=== PATIENT | female | born 1990 | race Caucasian/White ===

== ENCOUNTER 2021-02-28 06:47 | Day surgery (SDC) | payer MEDICAID ==
[2021-02-22 10:50] LABS: CLARITY,URINE CLEAR (Clear); GLUCOSE, URINE NEGATIVE (Neg); KETONES,URINE NEGATIVE (Neg); LEUKOCYTE ESTERASE ,URINE NEGATIVE (Neg); NITRITES, URINE NEGATIVE (Neg); OCCULT BLOOD,URINE TRACE-LYSED (Neg); PH,URINE 7.5 (4.8-8.0); PROTEIN,URINE NEGATIVE (Neg); UROBILINOGEN,URINE 0.2 E.U/dL (0.2-1.0)
[2021-02-22 10:54] LABS: BASOPHILS % (AUTO) 0.6 % (0-1); EOSINOPHILS # (AUTO) 0.1 X10'3 (0-0.9); EOSINOPHILS % (AUTO) 1.5 % (0-6); LYMPHOCYTES % (AUTO) 22.8 % (21-51); MEAN CORPUSCULAR HEMOGLOBIN 30.9 PG (27.0-31.0); MEAN CORPUSCULAR HGB CONC 34.1 g/dL (33.0-36.5); MEAN CORPUSCULAR VOLUME 90.6 FL (78-98); MEAN PLATELET VOLUME 9.6 FL (7.4-10.4); MONOCYTES # (AUTO) 0.3 X10'3 (0-0.9); MONOCYTES % (AUTO) 7.4 % (2-12); NEUTROPHILS # (AUTO) 3.1 X10'3 (1.8-7.7); NEUTROPHILS % (AUTO) 67.7 % (42-75); PRE OP HEMATOCRIT 39.9 % (35.0-45.0); PRE OP HEMOGLOBIN 13.6 g/dL (12.0-16.0); PRE OP PLATELET COUNT 184 X10'3 (140-440); RED CELL DISTRIBUTION WIDTH 14.2 % (11.5-14.5)
[2021-02-22 11:00] LABS: COLOR,URINE STRAW (Yellow); UA COLLECTION TYPE CLN CATCH MIDSTREAM
[2021-02-22 11:05] LABS: SQUAMOUS EPITHELIAL CELL,UR FEW /LPF (FEW)
[2021-02-22 11:09] LABS: RBC,URINE 0-2 /HPF (0-2); WBC,URINE 0-4 /HPF (0-4)
[2021-02-22 11:10] LABS: BACTERIA,URINE 1+ /HPF (Neg)
[2021-02-22 11:13] LABS: ALBUMIN 4.3 G/DL (3.4-5.0); ALBUMIN/GLOBULIN RATIO 1.2 (1.1-1.5); ALKALINE PHOSPHATASE 62 IU/L (46-116); BLOOD UREA NITROGEN 12 MG/DL (7-18); BUN/CREATININE RATIO 16.9 (6.6-38.0); CALCIUM 9.3 MG/DL (8.5-10.1); CHLORIDE 106 MMOL/L (99-107); CREATININE 0.71 MG/DL (0.40-0.90); PRE OP ALT 27 U/L (30-65); PRE OP ANION GAP 10 (8-16); PRE OP AST 15 U/L (10-37); PRE OP BILIRUB, TOTAL 0.8 MG/DL (0.0-1.0); PRE OP GLUCOSE 92 MG/DL (70-104); PRE OP POTASSIUM 3.9 MMOL/L (3.4-5.1); PRE OP SODIUM 142 MMOL/L (135-145); TOTAL CARBON DIOXIDE 26.4 MMOL/L (24-32); TOTAL PROTEIN 7.9 G/DL (6.4-8.2); eGFR > 90 ML/MIN
[2021-02-22 11:19] LABS: HCG SERUM QL NEGATIVE
[~2021-02-28] VITALS: Ht 172.7 cm; Wt 50.0 kg
[2021-02-28] VITALS (7 sets, daily range): BP systolic 104–123; BP diastolic 72–80
[~2021-02-28 06:47] MED LIST: HYDR-3686 PO; NORE0.3547 PO; SERT-433 PO; ceFOXitin 2GM-NS 100mL ADDvant 100 ML IV ONE; famotidine 20mg tablet PO ONE; ringers solution, lacted 1,000 ML IV SCH
[2021-02-28] MEDS ORDERED: meperidine/PF 25mg/ml syringe IV PRN (08:15)
[2021-02-28] MEDS ORDERED: ketorolac trometh. 30mg/ml inj. IV ONE (08:15)
[2021-02-28] MEDS ORDERED: hydrALAZINE 20mg/ml inj. IV PRN (08:15)
[2021-02-28] MEDS ORDERED: acetaminophen 1,000mg/100ml IV 100 ML IV PRN (08:15)
[2021-02-28] MEDS ORDERED: morphine 4 MG/ML inj SYRINge IV PRN (08:15)
[2021-02-28] MEDS ORDERED: proCHLORperazine 10 MG/2 ml inj IV PRN (08:15)
[2021-02-28] MEDS ORDERED: morphine 2 MG/ML inj. syringe IV PRN (08:15)
[2021-02-28] MEDS ORDERED: ondansetron/PF 4mg/2ml inj IV PRN (08:15)
[2021-02-28] MEDS ORDERED: labetalol 20mg/4ml (5mg/ml) syringe IV PRN (08:15)
[2021-02-28] MEDS ORDERED: ringers solution, lacted 1,000 ML IV SCH (08:15)
[2021-02-28] MEDS ORDERED: diazepam 5mg tablet PO ONE (08:55)
--- NOTE | 2021-02-28 09:00 | NUR ---
PT STATES SHE IS FEELING ANXIOUS AND REQUESTS SOMETHING TO HELP CALM HER. CALLED DR BENAVIDES AND RECEIVED ORDER FOR VALIUM PO PRE-OP. PT HAS SEEN DR PHELPS AND DR BENAVIDES PRE-OP, AND HAS SIGNED CONSENTS. PO VALIUM GIVEN. SIDE RAILS UP, CALL LIGHT WITHIN REACH, AND FRIEND JERSON AT THE BEDSIDE.
[2021-02-28] MEDS ORDERED: BUPIVAcaine/PF 2.5 mg/ml (0.25%) 30ml vial ONE (10:02)
[2021-02-28] MEDS ORDERED: sevoflurane 250ml liquid IH ONE (10:18)
[2021-02-28] MEDS ORDERED: fentaNYL /PF 50mcg/ml 5ml ampule ONE (10:18)
[2021-02-28] MEDS ORDERED: midazolam 1 mg/ML 2ml injection ONE (10:18)
[2021-02-28] MEDS ORDERED: dexamethasone sod phosphate 4mg/ml inj. ONE (10:30)
[2021-02-28] MEDS ORDERED: ondansetron/PF 4mg/2ml inj ONE (10:30)
[2021-02-28] MEDS ORDERED: rocuronium 10mg/ml inj IV ONE (10:30)
[2021-02-28] MEDS ORDERED: LIDOcaine 2% (20mg/ml) 5ml vial ONE (10:30)
[2021-02-28] MEDS ORDERED: propofol inj 20 ML IV ONE (10:30)
[2021-02-28] MEDS ORDERED: neostigmine methylsulfate 1 MG/ML 10ml vial ONE (10:54)
[2021-02-28] MEDS ORDERED: glycopyrrolate 0.2mg/ml inj ONE (10:54)
--- NOTE | 2021-02-28 11:12 | NUR ---
Received from OR via , accompanied by Anesthesiologist DR BENAVIDES and report given by Anesthesiolgist.AWAKENS TO VOICE. VITALS STABLE. DRESSINGS DI. LOIS PAIN. ABD SOFT.
--- NOTE | 2021-02-28 12:12 | NUR ---
AWAKE AND ORIENTED. VITALS STABLE. DRESSINGS DI. LOIS PAIN. HOME WITH HER FRIEND AT THIS TIME.
== END 2021-02-28 12:12 | disposition home or self-care (01) ==
LOC: PAS 06:47
PROVIDERS: ATTEND Surgery
DX: K80.10 Calculus of gallbladder with chronic cholecystitis without obstruction (principal); F32.9 Major depressive disorder, single episode, unspecified; F41.9 Anxiety disorder, unspecified; F43.10 Post-traumatic stress disorder, unspecified; Z79.899 Other long term (current) drug therapy; Z87.19 Personal history of other diseases of the digestive system; F12.90 Cannabis use, unspecified, uncomplicated; Z72.89 Other problems related to lifestyle; Z20.822 Contact with and (suspected) exposure to COVID-19
CPT/HCPCS: 36415; 47562; 80053; 81001; 82948; 84703; 85025; J0131; J0694; J1100; J1885; J2250; J2405; J2704; J2710; J3010; J3490; J7030; J7120; U0003; U0005; Z7506; Z7512; A4215; A4618; A7000